=== PATIENT | male | born 1965 | race Caucasian/White ===

== ENCOUNTER 2019-09-01 20:03 | Emergency (ER) | payer OTHER, SELFPAY ==
[2019-09-01 20:05] VITALS: BP 162/89; PULSE 70; RESP 16; TEMP 36.2; O2SAT 100
[2019-09-01] MEDS: TETRACAINE HCL 0.5% OPHTH SOLN 4 ML BTL 1 DROP (20:16)
[2019-09-01] MEDS: FLUORESCEIN SOD 1 MG/STRIP (20:21)
[2019-09-01] MEDS: DACRIOSE EYE IRRIGATION 118 ML BOTTLE (20:21)
--- NOTE | 2019-09-01 20:24 | ED.EYEPROB ---
HPI - Eye Problem General Chief complaint: Eye Problems Stated complaint: eye probs Time Seen by Provider: 09/01/19 20:11 Source: patient Mode of arrival: ambulatory Limitations: no limitations History of Present Illness HPI Narrative: Pt c/o something went into his left eye after weeding today. Denies any blurred or loss of vision. Denies any other injuries. chief complaint: foreign body Duration: constant Location: left eye Eye Symptoms: redness and foreign body sensation Severity: mild Associated symptoms: none Treatments Prior to Arrival: none Related Data Patient tetanus UTD: Yes Allergies Allergy/AdvReac Type Severity Reaction Status Date / Time No Known Allergies Allergy Unverified 01/24/18 09:55 Review of Systems Review of Systems: All systems reviewed & are unremarkable except as noted in HPI and below PMFSH Family History Family History (Updated 01/08/18 @ 11:38 by DOCTOR UNKNOWN) Other Diabetes mellitus Family history of malignant neoplasm Hypertension Social History Social History Smoking status: Never smoker Alcohol intake: current Exam Const: General: no acute distress and alert Orientation/consciousness: patient oriented x3 HENMT: Other: FB LEFT EYE, LEFT UPPER QUADRANT, CORNEAL ABRASION Course Vital Signs Vital signs: Vital Signs Temperature 36.2 C L 09/01/19 20:05 Pulse Rate 70 09/01/19 20:05 Respiratory Rate 16 09/01/19 20:05 Blood Pressure 162/89 H 09/01/19 20:05 Pulse Oximetry 100 09/01/19 20:05 Temperature 36.2 C L 09/01/19 20:05 Pulse Rate 70 09/01/19 20:05 Respiratory Rate 16 09/01/19 20:05 Blood Pressure 162/89 H 09/01/19 20:05 Pulse Oximetry 100 09/01/19 20:05 Procedures FB Removal Eye Foreign Body #1: Foreign Body Removal Date: 09/01/19 Foreign Body Removal Time: 20:26 Time Out performed: Yes Location: eye (L) Topical anesthetic used: tetracaine Foreign body: other Evidence of corneal penetration: Yes Technique: cotton tip swab Post-procedure medication: ophthalmic antibiotic Discharge Plan Discharge Clinical Impression: Foreign body in eyeball, left, Corneal abrasion Patient Disposition: Home, Self-Care Condition: Improved Instructions: Antibiotic Form Additional Instructions: FOLLOW UP WITH AN OPHTHALMOLOGY IN 1-2 DAYS Follow-up/Referrals: Jerman Cosby MD [Primary Care Provider] - 09/02/19 Time of Disposition: 20:29
== END 2019-09-01 21:35 | disposition home or self-care (01) ==
LOC: ANHED 20:46
PROVIDERS: Emergency Provider Emergency Medicine; PCP Family Medicine Adolescent Medicine
DX: S05.52XA Penetrating wound with foreign body of left eyeball, initial encounter (principal); W22.8XXA Striking against or struck by other objects, initial encounter; Y93.H2 Activity, gardening and landscaping
CPT/HCPCS: 65220; 99283; A9270

== ENCOUNTER 2020-05-12 15:42 | Emergency (ER) | payer BC, SELFPAY ==
[2020-05-12] VITALS (19 sets, daily range): BP systolic 122–158; BP diastolic 77–93; PULSE 67–91; RESP 12–20; O2SAT 96–100
--- NOTE | ~2020-05-12 | XR_ITS ---
EXAMINATION: XR chest 2V DATE: 05/12/2020 17:21 INDICATION: Palpitations. TECHNIQUE: Frontal and lateral views of the chest were obtained. COMPARISON: Chest 2 views 03/16/2004, CT abdomen and pelvis 10/08/2017 FINDINGS: The chest demonstrates clear lungs without pneumonia, pleural effusion, or pneumothorax. Th e heart size is normal. IMPRESSION: 1. No acute cardiopulmonary disease. Reviewed, dictated and finalized at location A. S HAND SEWER
--- NOTE | 2020-05-12 15:57 | ED.ARRPALP ---
HPI - Arrhythmia/Palpitations General Chief Complaint: Arrhythmia/Palpitations Stated Complaint: RAPID HR-RESOLVED Time Seen by Provider: 05/12/20 15:57 Source: patient Mode of arrival: EMS Limitations: no limitations History of Present Illness HPI narrative: Patient is a 55-year-old male with a history of hypertension who presents for evaluation of palpitations. Patient reportedly had recently had his blood pressure medication increased from lisinopril 20 mg to 40 mg daily, have been watching his blood pressure measurements via his primary care physician. Today around 2:30 PM, patient noticed palpitations and his heart rate was going around 150-160 bpm. Patient denied any associated chest pain. No shortness of breath. He states he felt slightly flushed. Patient had no history of this in the past. He walked to the fire department who verified his pulse was in the 160s, they had him blow into a straw and then the palpitations resolved. On telemetry strip, pt with narrow complex tachycardia, consistent with SVT, rate 160s. Patient was transported here, EKG showing normal sinus rhythm. No current symptoms. Related Data Allergies Allergy/AdvReac Type Severity Reaction Status Date / Time No Known Allergies Allergy Unverified 01/24/18 09:55 Review of Systems Review of Systems: Narrative: CONSTITUTIONAL: Denies fever, chills, or sweats. ENT: Denies rhinorrhea, congestion CARDIOVASCULAR: Denies current chest pain, palpitations, or edema. RESPIRATORY: Denies cough or dyspnea. GASTROINTESTINAL: Denies abdominal pain, nausea, vomiting, or diarrhea. GENITOURINARY: Denies dysuria or hematuria. SKIN: Denies rash or itching. MUSCULOSKELETAL: Denies back pain, joint pain, or myalgia. NEUROLOGIC: Denies headache, numbness, or weakness. [facility] Past Medical History Medical History Acid reflux Hypertension Family History Family History (Updated 01/08/18 @ 11:38 by DOCTOR UNKNOWN) Other Diabetes mellitus Family history of malignant neoplasm Hypertension Social History Social History Smoking status: Never smoker Alcohol intake: current Exam Narrative: Exam Narrative: GENERAL: Awake, alert, conversant HEAD: Normocephalic, atraumatic. EYES: PERRLA and EOMI. ENT: Nares clear, no rhinorrhea or epistaxis. Mucous membranes moist. NECK: Supple. CHEST: No respiratory distress, breathing even and non labored HEART: Regular rate, sinus rhythm ABDOMEN:Non distended, non tender EXTREMITIES: Normal range of motion. No edema. SKIN: Warm, dry, no rash. NEURO:No focal deficits. Alert and oriented x3 Course Vital Signs Vital signs: Vital Signs Pulse Rate 78 05/12/20 15:47 Respiratory Rate 20 05/12/20 15:47 Pulse Oximetry 97 05/12/20 15:47 Pulse Rate 80 05/12/20 16:47 Respiratory Rate 20 05/12/20 16:47 Blood Pressure 137/90 05/12/20 16:47 Pulse Oximetry 98 05/12/20 16:47 MDM - Arrhythmia/Palpitations MDM Narrative Medical decision making narrative: Patient presented for evaluation of palpitations, likely SVT based on telemetry obtained at [facility]. Patient had resolution with Valsalva maneuver. No recurrence after period of observation in the ER. Laboratory results including thyroid and electrolytes are normal. No chest pain, thus troponins were not obtained. Patient's blood pressures have been appropriate. Spoke with on-call mine laborer Dr. Mace who recommended the patient be placed on verapamil ER 120 mg daily with follow-up in their office. Pt then discharged home in stable condition. Differential Diagnosis Differential diagnosis: Likely palpitations, sinus tachycardia, artial fibrillation, artial flutter, supraventricular tachycardia and WPW Lab Data Result diagrams: 05/12/20 16:52 05/12/20 16:52 Labs: Lab Results 05/12/20 05/12/20 05/12/20
[2020-05-12] MEDS: ASPIRIN 81 MG CHEWABLE TABLET 324 MG PO (16:59)
[2020-05-12 17:06] LABS: Basophils Percent Auto 0.5 % (0.2-1.2); Eosinophils Absolute Auto 0.1 K/mm3 (0-0.3); Eosinophils Percent Auto 1.9 % (0-4.4); Hematocrit 45.3 % (42.0-52.0); Hemoglobin 15.4 g/dL (14.0-18.0); Immature Granulocyte Absolute 0.02 K/mm3 (0.00-0.031); Immature Granulocyte Percent A 0.3 % (0-0.5); Lymphocytes Absolute Auto 1.83 K/mm3 (0.9-3.2); Lymphocytes Percent Auto 24.2 % (18.3-44.2); Mean Corpuscular Hemoglobin 31.2 pg (26-34); Mean Corpuscular Volume 91.7 fl (80-100); Mean Platelet Volume 10.4 fl (7.4-10.4); Monocytes Absolute Auto 0.6 K/mm3 (0.1-0.6); Monocytes Percent Auto 8.5 % (2.6-8.5); Neutrophils Absolute Auto 4.9 K/mm3 (1.3-6.7); Neutrophils Percent Auto 64.6 % (45.5-73.1); Platelet Count Result 196 k/mm3 (150-375); Red Blood Count 4.94 M/mm3 (4.6-6.20); Red Cell Distribution Width 13.6 % (11.5-14.5); White Blood Count 7.6 K/mm3 (4.5-10.0)
--- NOTE | 2020-05-12 17:13 | ECG_ITS ---
Measurements Intervals [place] Rate: 75 P: 39 [place]: 135 QRS: -4 QRSD: 84 T: 14 QT: 358 QTc: 401 Interpretive Statements SINUS RHYTHM INCOMPLETE RIGHT BUNDLE BRANCH BLOCK VOLTAGE CRITERIA FOR LVH BORDERLINE ECG Electronically Signed On 05-12-2020 20:31:20 MACHINE OPERATOR TRANSPLANTER by Edgar Castillo D.O.
[2020-05-12 17:14] LABS: Anion Gap 8 mmol/L (8-16); Blood Urea Nitrogen 17 mg/dL (9-20); Calcium 9.3 mg/dL (8.4-10.2); Carbon Dioxide 27 mmol/L (22-30); Chloride 107 mmol/L (98-107); Estimated Glomerular Filt Rate 58; Glucose 110 mg/dL (75-110); Magnesium 1.8 mg/dL (1.6-2.3); Potassium 4.3 mmol/L (3.4-5.0); Sodium 142 mmol/L (137-145)
--- NOTE | 2020-05-12 18:54 | PC.NURSE ---
Verapamil not given due the medication sent from pharmacy being Valsartan. Medication returned.
[2020-05-12] MEDS: VERAPAMIL HCL 80 MG TABLET 40 MG PO (19:01)
== END 2020-05-12 19:05 | disposition home or self-care (01) ==
PROVIDERS: Emergency Provider Emergency Medicine; PCP Family Medicine Adolescent Medicine
DX: R00.2 Palpitations (principal); I47.1 Supraventricular tachycardia; K21.9 Gastro-esophageal reflux disease without esophagitis; I10 Essential (primary) hypertension
CPT/HCPCS: 36415; 71046; 80048; 83735; 84443; 85025; 93005; 99283; A9270

== ENCOUNTER 2021-07-29 01:46 | Day surgery (SDC) | payer BC, SELFPAY ==
[2021-07-20 13:23] VITALS: BMI 32.3
--- NOTE | 2021-07-28 12:23 | PM.HPGS ---
History of Present Illness History of Present Illness Consent: Risks, benefits, and alternatives have been discussed and questions answered. Patient agrees to proceed with procedure. Chief complaint: neoplasm screening Narrative: Teo Crook is a 56 year old male referred for colon cancer screening. Review of Systems Review of Systems: All systems reviewed & are unremarkable except as noted in HPI and below PMFSH Past Medical History Medical History Acid reflux Atrophy of right kidney Hypertension Prediabetes Surgical History Surgical History History of cardiac catheterization 09/2017 Family History Family History Other Diabetes mellitus Family history of malignant neoplasm Hypertension Social History Social History Smoking status: Never smoker Second hand tobacco smoke exposure: No Alcohol intake: current Alcohol use details: rarely Substance use: never Substance use type: does not use Living arrangements: with family Gender identity (if verbalized by the patient): Male Sexual Orientation (if Verbalized by the Patient): Straight or Heterosexual Spiritual care concerns: No Agree to blood products: Yes Meds Home Medications and Allergies Home Medications Medication Instructions Recorded Confirmed Type verapamil 240 mg 24 hr 240 mg PO DAILY #30 cap 07/01/21 07/29/21 Rx capsule,extended release losartan 100 mg tablet 100 mg PO DAILY #30 tablet 07/04/21 07/20/21 Rx omeprazole 20 mg capsule,delayed 20 mg PO DAILY 07/06/21 07/29/21 History release Allergies Allergy/AdvReac Type Severity Reaction Status Date / Time No Known Allergies Allergy Verified 07/29/21 06:08 Exam Resp: Auscultation: clear to auscultation bilaterally Cardio: Rate: regular rate Rhythm: regular rhythm GI: GI Palp: Yes Soft to palpation and No Tenderness to palpation present (GI) Assessment and Plan Assessment and plan (1) Colon cancer screening: Code(s): Z12.11 - Encounter for screening for malignant neoplasm of colon Status: Acute Assessment and Plan: Colonoscopy with possible biopsy or polypectomy or cautery or injection of substances.
[2021-07-29 06:09] VITALS: BP 148/90; PULSE 62; RESP 18; TEMP 36.2; O2SAT 100; BMI 32.0
[2021-07-29] MEDS: LACTATED RINGERS 1,000 ML 150 ML IV CONT (06:13)
--- NOTE | 2021-07-29 07:18 | P.PNAN_ITS ---
Anes - Initial Pre Proc Eval Procedure: Operation Date: 07/29/21 07:30 Proposed Procedures p Screening Colonoscopy - Chintan Vick MD Date/Time: 07/29/21 07:18 Surgeon: Chintan Vick MD Pre Op Diagnosis: neoplasm screening Patient Data Age: 56 Gender: M Height: 1.8 m Weight: 104.2 kg Last Vital Signs Temp 97.2 F L 07/29/21 06:09 Pulse 62 07/29/21 06:09 Resp 18 07/29/21 06:09 BP 148/90 H 07/29/21 06:09 Pulse Ox 100 07/29/21 06:09 Allergies Allergy/AdvReac Type Severity Reaction Status Date / Time No Known Allergies Allergy Verified 07/29/21 06:08 Home Medications Medication Instructions Recorded Confirmed Type verapamil 240 mg 24 hr 240 mg PO DAILY #30 cap 07/01/21 07/29/21 Rx capsule,extended release losartan 100 mg tablet 100 mg PO DAILY #30 tablet 07/04/21 07/20/21 Rx omeprazole 20 mg capsule,delayed 20 mg PO DAILY 07/06/21 07/29/21 History release Patient hx anesthesia problems: none Family hx anesthesia problems: none Results Review: All pre-operative results and documents have been reviewed as part of the pre-operative evaluation. [facility] Past Medical History Medical History Acid reflux Atrophy of right kidney Hypertension Prediabetes Surgical History Surgical History History of cardiac catheterization 09/2017 Family History Family History Other Diabetes mellitus Family history of malignant neoplasm Hypertension Social History Social History (Updated 07/06/21 @ 15:12 by Flor Bolton MA) Smoking status: Never smoker Second hand tobacco smoke exposure: No Alcohol intake: current Alcohol use details: rarely Substance use: never Substance use type: does not use Living arrangements: with family Gender identity (if verbalized by the patient): Male Sexual Orientation (if Verbalized by the Patient): Straight or Heterosexual Spiritual care concerns: No Agree to blood products: Yes Anes - Eval Final PreProcedure Day of Procedure 07/29/21 07:18 Patient weight: obese Heart: regular rate and rhythm Lungs: clear to auscultation Airway: Mallampati scale class II Neurological: alert and oriented Last oral intake: >/= 8 hours ASA classification: II Emergent: no Anesthetic plan: proceed Anesthesia type and monitoring: general GIVS and standard monitoring Results Review: All pre-operative results and documents have been reviewed as part of the pre-operative evaluation. Informed Consent: The patient's anesthetic plan and its attendant risks and benefits were discussed with the patient/family/POA. Questions were solicited and answers provided to the satisfaction of the patient/family/POA.
[2021-07-29 07:45] VITALS: BP 129/87; PULSE 64; RESP 18; O2SAT 98
[2021-07-29 07:55] VITALS: BP 138/83; PULSE 54; RESP 20; O2SAT 99
[2021-07-29 08:05] VITALS: BP 133/82; PULSE 56; RESP 18; O2SAT 99
== END 2021-07-29 08:14 | disposition home or self-care (01) ==
PROVIDERS: PCP Family Medicine Adolescent Medicine; Visit Provider Internal Medicine Gastroenterology
PROC: 0DJD8ZZ Inspection of Lower Intestinal Tract, Via Natural or Artificial Opening Endoscopic (ICD-10-PCS; CPT 45378; principal; 2021-07-29 07:30)
DX: Z12.11 Encounter for screening for malignant neoplasm of colon (principal); K57.30 Diverticulosis of large intestine without perforation or abscess without bleeding; K21.9 Gastro-esophageal reflux disease without esophagitis; I10 Essential (primary) hypertension; R73.03 Prediabetes; Z95.5 Presence of coronary angioplasty implant and graft; E66.9 Obesity, unspecified; Z68.32 Body mass index [BMI] 32.0-32.9, adult
CPT/HCPCS: 45378; J2704; J7120

== ENCOUNTER 2024-09-12 07:33 | Outpatient (CLI) | payer OTHER, SELFPAY ==
--- NOTE | ~2024-09-12 | US_ITS ---
US abdomen limited INDICATION: Abnormal liver enzymes PROCEDURE: Realtime right upper abdominal ultrasound. COMPARISON: No prior studies for comparison. FINDINGS: The pancreas is normal without focal mass or pancreatic ductal dilation. Liver echotexture is diffusely increased, consistent with fatty infiltration. There is cyst the left hepatic lobe. Th ere is normal directional flow in the portal vein. The gallbladder is normal without stones, gallbladder wall thickening or pericholecystic fluid. Comm on bile duct measures 3 mm. No sonographic Davalos's sign. IMPRESSION: 1: Fatty infiltration of the liver. Reviewed, dictated and finalized at location A.
== END 2024-09-12 07:34 | disposition home or self-care (01) ==
PROVIDERS: PCP Family Medicine; Visit Provider Family Medicine
DX: R79.89 Other specified abnormal findings of blood chemistry (principal); K76.0 Fatty (change of) liver, not elsewhere classified
CPT/HCPCS: 76705

== ENCOUNTER 2025-01-27 15:25 | Outpatient (CLI) | payer OTHER, SELFPAY ==
--- NOTE | ~2025-01-27 | US_ITS ---
EXAMINATION: US renal BI, 01/27/2025 15:39 CDT HISTORY: N18.31 - Chronic kidney disease, stage 3a Comparison: None Technique: Sutton-scale and color Doppler images were obtained. Findings: KIDNEYS: Left renal cortex is intact, no solid masses, cysts or calculi, no hydronephrosis. Right Kidney: Right kidney not visualized. Left Kidney: Left kidney 12.3 x 5.7 x 5.9 cm, normal. Bladder: The bladder is unremarkable. . Impression: 1. Right kidney not visualized. No acute process. Reviewed, dictated and finalized at location A. Impression: 1. Right kidney not visualized. No acute process.
== END 2025-01-27 15:26 | disposition home or self-care (01) ==
PROVIDERS: PCP Family Medicine; Visit Provider Family Medicine
DX: N18.31 Chronic kidney disease, stage 3a (principal)
CPT/HCPCS: 76770

== ENCOUNTER → 2025-02-05 16:12 | Outpatient (CLI) | payer OTHER, SELFPAY ==
--- NOTE | ~2025-02-05 | XR_ITS ---
XR lumbar spine 2-3V Indication: M54.9 - Dorsalgia, unspecified Comparison: None Findings: Moderate loss of vertebral height throughout, no fracture or subluxation. Moderate loss of disc height throughout Soft tissues unremarkable Impression: No acute abnormality. Reviewed, dictated and finalized at location P. Impression: No acute abnormality.
--- NOTE | ~2025-02-05 | XR_ITS ---
XR thoracic spine 3V Indication: M54.9 - Dorsalgia, unspecified Comparison: None Findings: Moderate loss of vertebral height throughout, no fracture or subluxation. Moderate loss of disc height throughout Soft tissues unremarkable Impression: No acute abnormality. Reviewed, dictated and finalized at location P. Impression: No acute abnormality.
== END ==
LOC: EXPCRAD 16:13
PROVIDERS: PCP Family Medicine; Visit Provider Family Medicine
DX: M54.9 Dorsalgia, unspecified (principal)
CPT/HCPCS: 72072; 72100

== ENCOUNTER 2025-02-22 12:21 | Outpatient (CLI) | payer OTHER, SELFPAY ==
--- NOTE | ~2025-02-22 | CT_ITS ---
EXAMINATION: CT abdomen pelvis w con DATE: 02/22/2025 12:52 INDICATION: Unspecified abdominal pain. TECHNIQUE: Computed tomography (CT) of the abdomen and pelvis was performed with 100 mL Omnipaque 350 intravenous contrast. Automated exposure control and iterative reconstruction technique were employed. The dose-length product was 889.13 mGy-cm. COMPARISON: CT abdomen and pelvis 10/08/2017 FINDINGS: The visualized portions of the lung bases demonstrate mild atelectasis. No pleural effusion. The heart size is normal. No pericardial effusion. There is a small sliding hiatal hernia. There is diffuse hepatic steatosis. There is a 1.9 cm cyst in left hepatic lobe. The gallbladder, spleen, pancreas, and adrenal glands are normal. There is severe atrophy of right kidney and mild atrophy of left kidney. There are cysts in the kidneys measuring up to 8 mm on the right. There are 2 mm and 4 mm stones in left kidney. There are bilateral inguinal hernias containing fat. The prostate is mildly enlarged. There is diverticulosis of the colon without evidence of diverticulitis. The appendix is normal. There are no dilated loops of bowel. There are no pathologically enlarged lymph nodes. There is no free intraperitoneal fluid. There is an umbilical hernia containing fat. There are bridging endplate osteophytes at multiple levels in the spine, consistent with diffuse idiopathic skeletal hyperostosis (DISH). There is mild lumbar spondylosis. IMPRESSION: 1. Small sliding hiatal hernia. 2. Diffuse hepatic steatosis. 3. Severe atrophy of right kidney and mild atrophy of left kidney. 4. Umbilical hernia containing fat. 5. Bilateral inguinal hernias containing fat. Reviewed, dictated and finalized at location E.
--- OUTSIDE RECORDS SUMMARY | 2025-02-22 12:23 | XMS_ITS | Clinical Summary ---
Author Organization [facility] [place] [address] Address [address] [place] [address] Care Team Providers Care Postal Transportation Clerk Name Role Phone Ted Lopez Unavailable [phone] Jerman Cosby MD Primary Care Prov ider Allergies No known active allergies Medications omeprazole (PriLOSEC) 20 mg capsule Take 20 mg by mouth daily. 3 06/23/2017 Active verapamil ER (VERELAN) 240 mg 24 hr capsule Take by mouth daily 06/27/2020 Active losartan (COZAAR) 100 mg tablet Take by mouth daily 06/19/2020 Active Active Problems Problem Noted Date Diagnosed Date HTN (hypertension), benign 09/27/2021 PSVT (paroxysmal supraventricular tachycardia) 0 05/12/2020 Abnormal stress test 09/24/2017 Family history of premature CAD 09/24/2017 Exertional angina 09/24/2017 Lipid screening 09/24/2017 Medical History Medical History Date Comments Acid indigestion Family History Medical History Relation Name Comments Heart failure Brother 1 Stroke Brother 2 Heart failure Father Breast cancer Mother Lung disease Mother Relation Name Status Comments Brother 1 Alive Brother 2 Alive Father (Age 85) Mother (Age 88) Social History Tobacco Use Types Packs/Day Years Used Date Smoking Tobacco: Never Smokeless Tobacco: Never Alcohol Use Standard Drinks/Week Comments No 0 (1 standard drink = 0.6 oz pur e alcohol) Personal Safety Answer Date Recorded Getting School Help Needed Not on file 07/20 Sex and Gender Information Value Date Recorded Sex Assigned at Not on file Legal Sex Male 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 [employer] Gender Identity Not on file Sexual Orientation Not on file Obstetrics History Last Filed Vital Signs Vital Sign Reading Time Taken Comments Blood Pressure 120/72 09/27/2021 3:17 PM CDT Pulse 60 09/27/2021 3:17 PM CDT Temperature 36.5 C (97.7 F) 10/08/2017 8:14 AM CDT Respiratory Rate 16 10/08/2017 8:14 AM CDT Oxygen Saturation 97% 09/27/2021 3:17 PM CDT Inhaled Oxygen Concentration - - Weight 106.1 kg (234 lb) 09/27/2021 3:17 PM CDT Height 180.3 cm (5' 11) 09/27/2021 3:17 PM CDT Body Mass Index 32.64 09/27/2021 3:17 PM CDT Plan of Treatment Not on file Insurance [employer] Care Teams Postal Transportation Clerk Relationship Specialty Start Date End Date Jerman Cosby MD PCP - General Family Medicine 07/16/20 Ted Lopez PA Physician Residential Youth Counselor 09/21/17
[2025-02-22 12:44] LABS: Estimated Glomerular Filt Rate 39
== END 2025-02-22 12:22 | disposition home or self-care (01) ==
PROVIDERS: PCP Family Medicine; Visit Provider Family Medicine
DX: R10.9 Unspecified abdominal pain (principal); K44.9 Diaphragmatic hernia without obstruction or gangrene; K76.0 Fatty (change of) liver, not elsewhere classified; K42.9 Umbilical hernia without obstruction or gangrene; K40.20 Bilateral inguinal hernia, without obstruction or gangrene, not specified as recurrent
CPT/HCPCS: 74177; Q9967